=== PATIENT | female | born 2000 | race Caucasian/White ===

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

== ENCOUNTER 2019-01-19 18:21 | Emergency (ER) | payer MEDICAID ==
--- NOTE | 2019-01-19 18:40 | ERPHSYRPT ---
- History of Present Illness Time Seen by Provider: 01/19/19 18:28 Historian: patient Exam Limitations: no limitations Physician History: Pt started c/o RLQ abdominal pain 1 week ago, denies nausea, vomiting, diarrhea , urinary complaints, her last menstrual period was 2 months ago, denies vaginal bleeding or discharge. Timing/Duration: week(s) (1) Activities at Onset: none Quality: cramping Abdominal Pain Onset Location: RLQ Pain Radiation: no radiation Severity of Pain-Max: moderate Severity of Pain-Current: mild Modifying Factors: Improves With: nothing Associated Symptoms: denies symptoms Previous symptoms: no prior history Allergies/Adverse Reactions: Penicillins Allergy (Verified 01/19/19 18:37) Hx Tetanus, Diphtheria Vaccination/Date Given: Yes Hx Influenza Vaccination/Date Given: No Hx Pneumococcal Vaccination/Date Given: No - Review of Systems Constitutional: No Symptoms Ears, Nose, & Throat: No Symptoms Respiratory: No Symptoms Cardiac: No Symptoms Abdominal/Gastrointestinal: Abdominal Pain Genitourinary Symptoms: No Symptoms Musculoskeletal: No Symptoms Skin: No Symptoms Neurological: No Symptoms All Other Systems: Reviewed and Negative - Past Medical History Pertinent Past Medical History: Yes Neurological History: No Pertinent History ENT History: No Pertinent History Cardiac History: Hypertension Respiratory History: No Pertinent History Endocrine Medical History: No Pertinent History Musculoskeletal History: No Pertinent History GI Medical History: No Pertinent History History: No Pertinent History Psycho-Social History: Depression Female Reproductive Disorders: No Pertinent History Other Medical History: kidney cyst - Past Surgical History Past Surgical History: Yes Cardiac: No Pertinent History Respiratory: No Pertinent History Gastrointestinal: No Pertinent History Genitourinary: No Pertinent History Musculoskeletal: No Pertinent History Female Surgical History: No Pertinent History Other Surgical History: wisdom teeth - Social History Smoking Status: Current some day smoker How long have you smoked: 6 Exposure to second hand smoke: Yes Drug Use: none Patient Lives Alone: No Significant Family History: no pertinent family hx - Nursing Vital Signs Nursing Vital Signs: Initial Vital Signs Temperature 98.9 F 01/19/19 18:25 Pulse Rate 87 01/19/19 18:25 Respiratory Rate 18 01/19/19 18:25 Blood Pressure 138/91 01/19/19 18:25 O2 Sat by Pulse Oximetry 99 01/19/19 18:25 Pain Scale Pain Intensity 9 - Physical Exam General Appearance: no apparent distress Ears, Nose, Throat Exam: normal ENT inspection Neck Exam: normal inspection, non-tender, supple Respiratory Exam: normal breath sounds, lungs clear, No chest tenderness Cardiovascular Exam: regular rate/rhythm, normal heart sounds, normal peripheral pulses, No murmur Gastrointestinal/Abdomen Exam: soft, normal bowel sounds, tenderness (RLQ, mod. severe), No distention, No mass, No guarding, No ecchymosis, No rebound, No hernia, No organomegaly Back Exam: normal inspection, CVA tenderness (mild, right), No vertebral tenderness Extremity Exam: normal inspection, No calf tenderness Neurologic Exam: alert, oriented x 3, normal mood/affect Skin Exam: normal color, warm, dry, No rash, No petechiae, No cyanosis, No diaphoresis Lymphatic Exam: No adenopathy SpO2 Interpretation: normal O2 Delivery: Room Air - Course Nursing assessment & vital signs reviewed: Yes - CT Exams Abdomen/Pelvis CT Interpretation: Tele-radiologist Report, Other (small, right ovarian cyst) Ordered Tests: Active Orders 24 hr Category Date Time Status IV Insertion STAT Care 01/19/19 19:02 Active ABDOMEN AND PELVIS W/0 CONTRAS [CT] Stat Exams 01/19/19 19:02 Taken CBC W DIFF Stat Lab 01/19/19 19:53 Completed CMP Stat Lab 01/19/19 19:53 Completed HCG,QUALITATIVE URINE Stat Lab 01/19/19 18:38 Completed LIPASE Stat Lab 01/19/19 19:53 Completed UA W/RFX UR CULTURE Stat Lab 01/19/19 18:38 Completed Medication Summary Discontinued Medications Generic Name Dose Route Start Last Admin Trade Name Mellisa PRN Reason Stop Dose Admin Sodium Chloride 1,000 mls @ 999 mls/hr 01/19/19 19:02 01/19/19 20:25 Sodium Chloride 0.9% 1000 Ml IV 01/19/19 20:02 Infused .Q1H1M STA Infusion Sodium Chloride Confirm 01/19/19 19:09 Sodium Chloride 0.9% 1000 Ml Administered 01/19/19 19:10 Dose 1,000 mls @ ud .ROUTE .STK-MED ONE Ketorolac Tromethamine 30 mg 01/19/19 19:02 01/19/19 19:21 Toradol 30 Mg Injection IV 01/19/19 19:03 30 mg STAT ONE Administration Ketorolac Tromethamine Confirm 01/19/19 19:09 Toradol 30 Mg Injection Administered 01/19/19 19:10 Dose 30 mg .ROUTE .STK-MED ONE Lab/Rad Data: Laboratory Result Diagrams 01/19/19 19:53 01/19/19 19:53 Laboratory Results 01/19/19 01/19/19 01/19/19 Range/Units 19:53 19:53 18:38 WBC 7.8 (4.0-10.5) K/mm3 RBC 4.58 (4.1-5.4) M/mm3 Hgb 13.5 (12.0-16.0) gm/dl Hct 40.1 (35-47) % MCV 87.6 (78-100) fl MCH 29.5 (26-32) pg MCHC 33.7 (32-36) g/dl RDW 13.1 (11.5-14.0) % Plt Count 256 (150-450) K/mm3 MPV 10.0 H (6-9.5) fl Gran % 62.6 (36.0-66.0) % Eos # (Auto) 0.11 (0-0.5) Absolute Lymphs (auto) 2.28 (1.0-4.6) Absolute Monos (auto) 0.52 (0.0-1.3) Lymphocytes % 29.1 (24.0-44.0) % Monocytes % 6.6 (0.0-12.0) % Eosinophils % 1.4 (0.00-5.0) % Basophils % 0.3 (0.0-0.4) % Absolute Granulocytes 4.91 (1.4-6.9) Basophils # 0.02 (0-0.4) Sodium 141 (137-145) mmol/L Potassium 3.7 (3.5-5.1) mmol/L Chloride 110 H (98-107) mmol/L Carbon Dioxide 24 (22-30) mmol/L Anion Gap 10.2 (5-15) MEQ/L BUN 14 (7-17) mg/dL Creatinine 0.78 (0.52-1.04) mg/dL Estimated GFR > 60.0 ML/MIN Glucose 87 (74-106) mg/dL Calcium 9.2 (8.4-10.2) mg/dL Total Bilirubin 0.30 (0.2-1.3) mg/dL AST 21 (14-36) U/L ALT 16 (0-35) U/L Alkaline Phosphatase 89 (38-126) U/L Serum Total Protein 6.8 (6.3-8.2) g/dL Albumin 4.0 (3.5-5.0) g/dL Lipase 88 (23-300) U/L Urine Color (YELLOW) Urine Appearance (CLEAR) Urine pH (5-6) Ur Specific Jackson (1.005-1.025) Urine Protein (Negative) Urine Ketones (NEGATIVE) Urine Blood (0-5) Jeffrey/ul Urine Nitrite (NEGATIVE) Urine Bilirubin (NEGATIVE) Urine Urobilinogen (0-1) mg/dL Ur Leukocyte Esterase (NEGATIVE) Urine WBC (Auto) (0-5) /HPF Urine RBC (Auto) (0-2) /HPF U Epithel Cells (Auto) (FEW) /HPF Urine Bacteria (Auto) (NEGATIVE) /HPF Urine Mucus (Auto) (NEGATIVE) /HPF Urine Culture Reflexed (NO) Urine Glucose (NEGATIVE) mg/dL Urine HCG, Qual NEGATIVE (Negative) 01/19/19 Range/Units 18:38 WBC (4.0-10.5) K/mm3 RBC (4.1-5.4) M/mm3 Hgb (12.0-16.0) gm/dl Hct (35-47) % MCV (78-100) fl MCH (26-32) pg MCHC (32-36) g/dl RDW (11.5-14.0) % Plt Count (150-450) K/mm3 MPV (6-9.5) fl Gran % (36.0-66.0) % Eos # (Auto) (0-0.5) Absolute Lymphs (auto) (1.0-4.6) Absolute Monos (auto) (0.0-1.3) Lymphocytes % (24.0-44.0) % Monocytes % (0.0-12.0) % Eosinophils % (0.00-5.0) % Basophils % (0.0-0.4) % Absolute Granulocytes (1.4-6.9) Basophils # (0-0.4) Sodium (137-145) mmol/L Potassium (3.5-5.1) mmol/L Chloride (98-107) mmol/L Carbon Dioxide (22-30) mmol/L Anion Gap (5-15) MEQ/L BUN (7-17) mg/dL Creatinine (0.52-1.04) mg/dL Estimated GFR ML/MIN Glucose (74-106) mg/dL Calcium (8.4-10.2) mg/dL Total Bilirubin (0.2-1.3) mg/dL AST (14-36) U/L ALT (0-35) U/L Alkaline Phosphatase (38-126) U/L Serum Total Protein (6.3-8.2) g/dL Albumin (3.5-5.0) g/dL Lipase (23-300) U/L Urine Color YELLOW (YELLOW) Urine Appearance SLIGHTLY CLOUDY (CLEAR) Urine pH 5.0 (5-6) Ur Specific Jackson 1.032 (1.005-1.025) Urine Protein NEGATIVE (Negative) Urine Ketones NEGATIVE (NEGATIVE) Urine Blood NEGATIVE (0-5) Jeffrey/ul Urine Nitrite NEGATIVE (NEGATIVE) Urine Bilirubin NEGATIVE (NEGATIVE) Urine Urobilinogen 2 (0-1) mg/dL Ur Leukocyte Esterase NEGATIVE (NEGATIVE) Urine WBC (Auto) 3-5 (0-5) /HPF Urine RBC (Auto) NONE (0-2) /HPF U Epithel Cells (Auto) FEW (FEW) /HPF Urine Bacteria (Auto) RARE (NEGATIVE) /HPF Urine Mucus (Auto) SLIGHT (NEGATIVE) /HPF Urine Culture Reflexed NO (NO) Urine Glucose NEGATIVE (NEGATIVE) mg/dL Urine HCG, Qual (Negative) - Progress Progress: improved Progress Note: 01/19/19 21:21 Pt feels better after Toradol IV and saline, afebrile, explained our findings, she is being discharged home to rest x 1-2 days, and follow up with her physician in 2-3 days. 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 Forms: Work/School Release Form Prescriptions: Naproxen 375 mg [Naprosyn 375 mg] 375 mg PO BID #30 tablet
[2019-01-19 18:46] LABS: Appearance SLIGHTLY CLOUDY (CLEAR); Bacteria RARE /HPF (NEGATIVE); Bilirubin NEGATIVE (NEGATIVE); Blood NEGATIVE Ery/ul (0-5); Epithelial Cells FEW /HPF (FEW); Glucose NEGATIVE (NEGATIVE); Ketones NEGATIVE (NEGATIVE); Leukocyte Esterase NEGATIVE (NEGATIVE); Mucus SLIGHT /HPF (NEGATIVE); Nitrite NEGATIVE (NEGATIVE); Protein,Urine Dip NEGATIVE (Negative); Specific Gravity 1.032 (1.005-1.025); Urobilinogen 2 mg/dL (0-1)
[2019-01-19] MEDS ORDERED: TORAdol 30 mg Injection IV ONE (19:02)
[2019-01-19] MEDS ORDERED: Sodium Chloride 0.9% 1000 ML 1,000 ML IV STA (19:02)
[2019-01-19] MEDS ORDERED: TORAdol 30 mg Injection ONE (19:09)
[2019-01-19] MEDS ORDERED: Sodium Chloride 0.9% 1000 ML 1,000 ML ONE (19:09)
[2019-01-19 19:52] LABS: BASOPHIL % 0.3 % (0.0-0.4); Basophil (Absolute #) 0.02 (0-0.4); Eosinophil % 1.4 % (0.00-5.0); Eosinophil (Absolute #) 0.11 (0-0.5); Granulocyte Absolute (ANC) 4.91 (1.4-6.9); Granulocytes % 62.6 % (36.0-66.0); Hematocrit 40.1 % (35-47); Hemoglobin 13.5 gm/dl (12.0-16.0); Lymphocyte (Absolute #) 2.28 (1.0-4.6); Lymphocytes % 29.1 % (24.0-44.0); Mean Cell Volume 87.6 fl (78-100); Mean Corpuscular Hemoglobin 29.5 pg (26-32); Mean Corpuscular Hgb Concent. 33.7 g/dl (32-36); Monocyte (Absolute #) 0.52 (0.0-1.3); Monocytes % 6.6 % (0.0-12.0); Platelet Count 256 K/mm3 (150-450); Red Blood Count 4.58 M/mm3 (4.1-5.4); Red Cell Distribution Width 13.1 % (11.5-14.0); White Blood Count 7.8 K/mm3 (4.0-10.5)
[2019-01-19 20:04] VITALS: O2SAT 98
[2019-01-19 20:06] LABS: ALKALINE PHOSPHATASE 89 U/L (38-126); ANION GAP 10.2 MEQ/L (5-15); BLOOD UREA NITROGEN 14 mg/dL (7-17); CHLORIDE 110 mmol/L (98-107); Calcium 9.2 mg/dL (8.4-10.2); Carbon Dioxide 24 mmol/L (22-30); Creatinine 1 0.78 mg/dL (0.52-1.04); Glucose 87 mg/dL (74-106); LIPASE 88 U/L (23-300); Potassium 3.7 mmol/L (3.5-5.1); SGOT/AST 21 U/L (14-36); SGPT/ALT 16 U/L (0-35); SODIUM 141 mmol/L (137-145); Total Protein 6.8 g/dL (6.3-8.2)
[2019-01-19 21:21] VITALS: BP 126/87; PULSE 62
--- NOTE | 2019-01-20 10:35 | XRAY ---
Exam: CT of the abdomen and pelvis without IV contrast from 01/19/2019. CTDI: 22.01 Comparison: CT of the abdomen and pelvis with IV contrast from 05/10/2017. Indication: 18-year-old female with right lower quadrant abdominal pain that began 1 week ago, complains of persistent right lower quadrant tenderness. Last menses 2 months ago, negative hCG test. Technique: Non-IV contrast axial images were obtained through the abdomen and pelvis without IV contrast material. Reconstructed coronal and sagittal images were created and reviewed. Findings: The visualized lung bases are clear except for some minimal scattered bibasilar linear atelectasis. No posterior pleural fluid is seen. Assessment of the solid organs is limited without the use of IV contrast. However, the liver, spleen, pancreas, and adrenal glands appear grossly unremarkable. I again see a small 1.5 cm in diameter probable cyst within the upper pole of the left kidney. I believe there is some focal cortical scarring at the posterior margin of the upper pole of the left kidney representing no significant change. Correlate clinically regarding past pyelonephritis or reflux nephropathy with cortical scarring. No new areas of cortical scarring or renal mass. No renal calculi or hydronephrosis is seen. The abdominal aorta appears of normal diameter. No abnormal retroperitoneal lymphadenopathy is seen. There is no free intraperitoneal air. The anterior abdominal wall appears intact. I see no findings to suggest acute appendicitis within the right lower quadrant. There is no evidence of abnormal bowel distention or bowel obstruction. There is no free intraperitoneal fluid. The uterus is anteflexed and of unremarkable size. The pelvic adnexa are remarkable for a probable 3.2 cm x 2.0 cm cyst within the right ovary on axial image #73 of series 2. This measures +12.25 Hounsfield units. Consider further evaluation with pelvic ultrasound. The left ovary appears unremarkable. No enlarged pelvic lymph nodes are seen. Pelvic sidewalls appear unremarkable. The urinary bladder is only mildly distended. No gross abnormality is seen. The skeleton reveals a few small Schmorl's nodes within the vertebral endplates of the lower thoracic and upper lumbar spine. No acute fracture or aggressive bone lesion is seen. Impression: 1. Findings most suggestive of a small 3.2 cm x 2.0 cm cyst within the right ovary. Consider further evaluation with a pelvic ultrasound. 2. No other acute process is seen within the abdomen or pelvis. 3. I again see a suggestion of a small 1.5 cm diameter cyst within the posterior aspect of the upper pole of the left kidney as well as some focal cortical scarring at the posterior margin of the upper pole of the left kidney. This is stable.
== END 2019-01-19 21:35 | disposition home or self-care (01) ==
LOC: ED 18:21
DX: N83.201 Unspecified ovarian cyst, right side (principal); I10 Essential (primary) hypertension; F32.9 Major depressive disorder, single episode, unspecified
CPT/HCPCS: 36000; 36415; 74176; 80053; 81001; 83690; 84703; 85025; 96360; 96374; 99284; J1885

== ENCOUNTER 2019-02-16 08:11 | Emergency (ER) | payer MEDICAID ==
[2019-02-16 08:37] VITALS: O2SAT 97
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
[2019-02-16 10:57] VITALS: BP 120/79; PULSE 86
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
== END 2019-02-16 11:05 | disposition home or self-care (01) ==
LOC: ED 08:11
DX: S00.11XA Contusion of right eyelid and periocular area, initial encounter (principal); Y04.0XXA Assault by unarmed brawl or fight, initial encounter
CPT/HCPCS: 70450; 84703; 99284

== ENCOUNTER 2019-02-17 12:32 | Emergency (ER) | payer MEDICAID ==
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
[2019-02-17 14:08] VITALS: PULSE 68; O2SAT 97
[2019-02-17 14:12] VITALS: BP 143/97
== END 2019-02-17 15:10 | disposition home or self-care (01) ==
LOC: ED 12:32
DX: S06.0X9D Concussion with loss of consciousness of unspecified duration, subsequent encounter (principal); S00.83XD Contusion of other part of head, subsequent encounter; R51 Headache; W22.09XA Striking against other stationary object, initial encounter; Y93.89 Activity, other specified
CPT/HCPCS: 70450; 70486; 99283

== ENCOUNTER 2019-04-17 20:13 | Emergency (ER) | payer MEDICAID ==
--- NOTE | 2019-04-17 20:55 | ERPHSYRPT ---
- History of Present Illness Time Seen by Provider: 04/17/19 20:20 Source: patient, family Patient Subjective Stated Complaint: "I was working at [employer] when i started having palpatations in my chest, i was hyperventilating and having an anxiety attack around 5:30pm tonight. My chest still hurts and my top lip is numb" Triage Nursing Assessment: Pt presents to ER with complaints of anxiety. Pt is alert and oriented x 3. Ambulated to room and placed in gown. Pt states she was at work and felt palpatations in chest, states is anxious and having chest pains. States her top lip is numb. Admits to hyperventilating at work, currently resp are easy and unlabored. Lung sounds clear throughout. Denies n/v/ d. Pt appears calm and collected at this time. Physician History: 18 y/o white female presents with sudden onset of mild cp, palpitations, and hyperventilation 2.5 hours ago while at work. pt states she had some perioral numbness which has resolved. pt started new meds trazadone and prozac a month ago. pt has some h/o depression Timing/Duration: hour(s) (2.5) Severity: mild Associated Symptoms: chest pain, other (palpitations) Allergies/Adverse Reactions: Penicillins Allergy (Verified 04/17/19 20:42) Home Medications: Fluoxetine HCl [Prozac] 50 mg PO HS 04/17/19 [History] Trazodone HCl 100 mg PO HS 04/17/19 [History] Hx Tetanus, Diphtheria Vaccination/Date Given: No Hx Influenza Vaccination/Date Given: No Hx Pneumococcal Vaccination/Date Given: No Immunizations Up to Date: Yes - Review of Systems Constitutional: No Symptoms Eyes: No Symptoms Ears, Nose, & Throat: No Symptoms Respiratory: No Symptoms Cardiac: Chest Pain (mild generalized), Palpitations Abdominal/Gastrointestinal: No Symptoms Genitourinary Symptoms: No Symptoms Musculoskeletal: No Symptoms Skin: No Symptoms Neurological: No Symptoms Psychological: No Symptoms Endocrine: No Symptoms Hematologic/Lymphatic: No Symptoms Immunological/Allergic: No Symptoms All Other Systems: Reviewed and Negative - Past Medical History Pertinent Past Medical History: Yes Neurological History: No Pertinent History ENT History: No Pertinent History Cardiac History: Hypertension Respiratory History: No Pertinent History Endocrine Medical History: No Pertinent History Musculoskeletal History: No Pertinent History GI Medical History: No Pertinent History History: No Pertinent History Psycho-Social History: Anxiety, Depression Female Reproductive Disorders: No Pertinent History Other Medical History: kidney cyst - Past Surgical History Past Surgical History: Yes Cardiac: No Pertinent History Respiratory: No Pertinent History Gastrointestinal: No Pertinent History Genitourinary: No Pertinent History Musculoskeletal: No Pertinent History Female Surgical History: No Pertinent History Other Surgical History: wisdom teeth - Social History Smoking Status: Current every day smoker How long have you smoked: 6 Exposure to second hand smoke: Yes Drug Use: none Patient Lives Alone: Yes Significant Family History: no pertinent family hx - Female History Hx Last Menstrual Period: 04/10/2019 Hx Now: No - Nursing Vital Signs Nursing Vital Signs: Initial Vital Signs Temperature 98.8 F 04/17/19 20:18 Pulse Rate 65 04/17/19 20:18 Respiratory Rate 16 04/17/19 20:18 Blood Pressure 126/79 04/17/19 20:18 O2 Sat by Pulse Oximetry 96 04/17/19 20:18 Pain Scale Pain Intensity 7 - Physical Exam General Appearance: no apparent distress, alert, anxiety Eye Exam: PERRL/EOMI, eyes nml inspection Ears, Nose, Throat Exam: normal ENT inspection, moist mucous membranes Neck Exam: normal inspection, non-tender, supple, full range of motion Respiratory Exam: normal breath sounds, chest tenderness, lungs clear, airway intact, No respiratory distress Cardiovascular Exam: regular rate/rhythm, normal heart sounds, normal peripheral pulses Gastrointestinal/Abdomen Exam: soft, normal bowel sounds, No tenderness Pelvic Exam: not done Rectal Exam: not done Back Exam: normal inspection, normal range of motion, No CVA tenderness, No vertebral tenderness Extremity Exam: normal inspection, normal range of motion, pelvis stable Neurologic Exam: alert, oriented x 3, cooperative, formation testing operator II-XII nml as tested Skin Exam: normal color, warm, dry Lymphatic Exam: No adenopathy SpO2 Interpretation: normal SpO2: 96 O2 Delivery: Room Air - Course Nursing assessment & vital signs reviewed: Yes EKG Interpreted by Me: RATE (64), Sinus Rhythm, NORMAL AXIS, NORMAL INTERVALS, NORMAL QRS, Other (no comparison ekg) Ordered Tests: Active Orders 24 hr Category Date Time Status Linseed Oil Order Filler STAT Care 04/17/19 20:35 Active Clean Catch Urine Specimen STAT Care 04/17/19 20:36 Active EKG-ER Only STAT Care 04/17/19 20:34 Active BMP Stat Lab 04/17/19 21:16 Completed CBC W DIFF Stat Lab 04/17/19 21:16 Completed HCG,QUALITATIVE URINE Stat Lab 04/17/19 21:43 Completed TROPONIN Q3H Lab 04/17/19 21:16 Completed TROPONIN Q3H Lab 04/17/19 23:45 Ordered UA W/RFX UR CULTURE Stat Lab 04/17/19 21:43 Completed Urine Triage Profile Stat Lab 04/17/19 21:43 Completed Lab/Rad Data: Laboratory Result Diagrams 04/17/19 21:16 04/17/19 21:16 Laboratory Results 04/17/19 04/17/19 04/17/19 Range/Units 21:43 21:43 21:43 WBC (4.0-10.5) K/mm3 RBC (4.1-5.4) M/mm3 Hgb (12.0-16.0) gm/dl Hct (35-47) % MCV (78-100) fl MCH (26-32) pg MCHC (32-36) g/dl RDW (11.5-14.0) % Plt Count (150-450) K/mm3 MPV (6-9.5) fl Gran % (36.0-66.0) % Eos # (Auto) (0-0.5) Absolute Lymphs (auto) (1.0-4.6) Absolute Monos (auto) (0.0-1.3) Lymphocytes % (24.0-44.0) % Monocytes % (0.0-12.0) % Eosinophils % (0.00-5.0) % Basophils % (0.0-0.4) % Absolute Granulocytes (1.4-6.9) Basophils # (0-0.4) Sodium (137-145) mmol/L Potassium (3.5-5.1) mmol/L Chloride (98-107) mmol/L Carbon Dioxide (22-30) mmol/L Anion Gap (5-15) MEQ/L BUN (7-17) mg/dL Creatinine (0.52-1.04) mg/dL Estimated GFR ML/MIN Glucose (74-106) mg/dL Calcium (8.4-10.2) mg/dL Troponin I (0.000-0.034) ng/mL Urine Color YELLOW (YELLOW) Urine Appearance CLOUDY (CLEAR) Urine pH 5.0 (5-6) Ur Specific [place] 1.033 (1.005-1.025) Urine Protein NEGATIVE (Negative) Urine Ketones NEGATIVE (NEGATIVE) Urine Blood NEGATIVE (0-5) Jeffrey/ul Urine Nitrite NEGATIVE (NEGATIVE) Urine Bilirubin NEGATIVE (NEGATIVE) Urine Urobilinogen NEGATIVE (0-1) mg/dL Ur Leukocyte Esterase NEGATIVE (NEGATIVE) Urine WBC (Auto) NONE (0-5) /HPF Urine RBC (Auto) 0-2 (0-2) /HPF U Epithel Cells (Auto) FEW (FEW) /HPF Urine Bacteria (Auto) NONE (NEGATIVE) /HPF Urine Mucus (Auto) SLIGHT (NEGATIVE) /HPF Urine Culture Reflexed NO (NO) Urine Glucose NEGATIVE (NEGATIVE) mg/dL Urine HCG, Qual NEGATIVE (Negative) Urine Opiates Level NEGATIVE (NEGATIVE) Ur Methadone NEGATIVE (NEGATIVE) Urine Barbiturates NEGATIVE (NEGATIVE) Ur Phencyclidine (PCP) NEGATIVE (NEGATIVE) Urine Amphetamine NEGATIVE (NEGATIVE) U Benzodiazepine Level POSITIVE (NEGATIVE) Urine Cocaine NEGATIVE (NEGATIVE) Urine Marijuana (THC) POSITIVE (NEGATIVE) 04/17/19 04/17/19 04/17/19 Range/Units 21:16 21:16 21:16 WBC 6.9 (4.0-10.5) K/mm3 RBC 4.52 (4.1-5.4) M/mm3 Hgb 13.4 (12.0-16.0) gm/dl Hct 39.9 (35-47) % MCV 88.3 (78-100) fl MCH 29.6 (26-32) pg MCHC 33.6 (32-36) g/dl RDW 13.3 (11.5-14.0) % Plt Count 255 (150-450) K/mm3 MPV 11.0 H (6-9.5) fl Gran % 62.2 (36.0-66.0) % Eos # (Auto) 0.12 (0-0.5) Absolute Lymphs (auto) 2.08 (1.0-4.6) Absolute Monos (auto) 0.39 (0.0-1.3) Lymphocytes % 30.3 (24.0-44.0) % Monocytes % 5.7 (0.0-12.0) % Eosinophils % 1.7 (0.00-5.0) % Basophils % 0.1 (0.0-0.4) % Absolute Granulocytes 4.26 (1.4-6.9) Basophils # 0.01 (0-0.4) Sodium 142 (137-145) mmol/L Potassium 4.3 (3.5-5.1) mmol/L Chloride 106 (98-107) mmol/L Carbon Dioxide 27 (22-30) mmol/L Anion Gap 13.1 (5-15) MEQ/L BUN 14 (7-17) mg/dL Creatinine 0.77 (0.52-1.04) mg/dL Estimated GFR > 60.0 ML/MIN Glucose 103 (74-106) mg/dL Calcium 9.6 (8.4-10.2) mg/dL Troponin I < 0.012 (0.000-0.034) ng/mL Urine Color (YELLOW) Urine Appearance (CLEAR) Urine pH (5-6) Ur Specific [place] (1.005-1.025) Urine Protein (Negative) Urine Ketones (NEGATIVE) Urine Blood (0-5) Jeffrey/ul Urine Nitrite (NEGATIVE) Urine Bilirubin (NEGATIVE) Urine Urobilinogen (0-1) mg/dL Ur Leukocyte Esterase (NEGATIVE) Urine WBC (Auto) (0-5) /HPF Urine RBC (Auto) (0-2) /HPF U Epithel Cells (Auto) (FEW) /HPF Urine Bacteria (Auto) (NEGATIVE) /HPF Urine Mucus (Auto) (NEGATIVE) /HPF Urine Culture Reflexed (NO) Urine Glucose (NEGATIVE) mg/dL Urine HCG, Qual (Negative) Urine Opiates Level (NEGATIVE) Ur Methadone (NEGATIVE) Urine Barbiturates (NEGATIVE) Ur Phencyclidine (PCP) (NEGATIVE) Urine Amphetamine (NEGATIVE) U Benzodiazepine Level (NEGATIVE) Urine Cocaine (NEGATIVE) Urine Marijuana (THC) (NEGATIVE) - Progress Progress: improved, re-examined Counseled pt/family regarding: lab results, diagnosis, need for follow-up - Departure Departure Disposition: Home Clinical Impression: Chest pain, Palpitations, Anxiety Condition: Stable Critical Care Time: No Referrals: DARYN MARTINEZ [Primary Care Provider] - Additional Instructions: follow up with your prescribing doctor for further management of your anxiety
[2019-04-17 21:38] LABS: Absolute Neutrophil Ct (ANC) 4.26 (1.4-6.9); BASOPHIL % 0.1 % (0.0-0.4); Basophil (Absolute #) 0.01 (0-0.4); Eosinophil % 1.7 % (0.00-5.0); Eosinophil (Absolute #) 0.12 (0-0.5); Hematocrit 39.9 % (35-47); Hemoglobin 13.4 gm/dl (12.0-16.0); Lymphocyte (Absolute #) 2.08 (1.0-4.6); Lymphocytes % 30.3 % (24.0-44.0); Mean Cell Volume 88.3 fl (78-100); Mean Corpuscular Hemoglobin 29.6 pg (26-32); Mean Corpuscular Hgb Concent. 33.6 g/dl (32-36); Monocyte (Absolute #) 0.39 (0.0-1.3); Monocytes % 5.7 % (0.0-12.0); Neutrophil % 62.2 % (36.0-66.0); Platelet Count 255 K/mm3 (150-450); Red Blood Count 4.52 M/mm3 (4.1-5.4); Red Cell Distribution Width 13.3 % (11.5-14.0); White Blood Count 6.9 K/mm3 (4.0-10.5)
[2019-04-17 21:45] LABS: Appearance CLOUDY (CLEAR); Bilirubin NEGATIVE (NEGATIVE); Blood NEGATIVE Ery/ul (0-5); Epithelial Cells FEW /HPF (FEW); Glucose NEGATIVE (NEGATIVE); Ketones NEGATIVE (NEGATIVE); Leukocyte Esterase NEGATIVE (NEGATIVE); Mucus SLIGHT /HPF (NEGATIVE); Nitrite NEGATIVE (NEGATIVE); Protein,Urine Dip NEGATIVE (Negative); RBC 0-2 /HPF (0-2); Specific Gravity 1.033 (1.005-1.025); Urobilinogen NEGATIVE mg/dL (0-1)
[2019-04-17 21:48] LABS: ANION GAP 13.1 MEQ/L (5-15); BLOOD UREA NITROGEN 14 mg/dL (7-17); CHLORIDE 106 mmol/L (98-107); Calcium 9.6 mg/dL (8.4-10.2); Carbon Dioxide 27 mmol/L (22-30); Creatinine 1 0.77 mg/dL (0.52-1.04); Glucose 103 mg/dL (74-106); Potassium 4.3 mmol/L (3.5-5.1); SODIUM 142 mmol/L (137-145)
[2019-04-17 22:02] LABS: Amphetamine,Urine NEGATIVE (NEGATIVE); Barbiturate,Urine NEGATIVE (NEGATIVE); Benzodiazepine,Urine POSITIVE (NEGATIVE); Cocaine,Urine NEGATIVE (NEGATIVE); Methadone,Urine NEGATIVE (NEGATIVE); Opiate,Urine NEGATIVE (NEGATIVE); PCP,Urine NEGATIVE (NEGATIVE); THC,Urine POSITIVE (NEGATIVE)
[2019-04-17] MEDS ORDERED: Ativan 2 MG/1 ML VIAL IM ONE (22:30)
[2019-04-17] MEDS ORDERED: Ativan 2 MG/1 ML VIAL ONE (22:43)
[2019-04-17 23:13] VITALS: BP 113/66; PULSE 70; O2SAT 100
== END 2019-04-17 23:11 | disposition home or self-care (01) ==
LOC: ED 20:13
DX: R07.9 Chest pain, unspecified (principal); R00.2 Palpitations; F41.9 Anxiety disorder, unspecified
CPT/HCPCS: 36415; 80048; 80307; 81001; 84484; 84703; 85025; 93005; 93041; 96372; 99284; J2060

== ENCOUNTER 2019-06-27 14:59 | Emergency (ER) | payer MEDICAID ==
[2019-06-27 17:07] LABS: Absolute Neutrophil Ct (ANC) 5.69 (1.4-6.9); BASOPHIL % 0.1 % (0.0-0.4); Basophil (Absolute #) 0.01 (0-0.4); Eosinophil % 1.4 % (0.00-5.0); Eosinophil (Absolute #) 0.11 (0-0.5); Hematocrit 41.1 % (35-47); Hemoglobin 13.7 gm/dl (12.0-16.0); Lymphocyte (Absolute #) 1.59 (1.0-4.6); Lymphocytes % 20.6 % (24.0-44.0); Mean Corpuscular Hemoglobin 29.7 pg (26-32); Mean Corpuscular Hgb Concent. 33.3 g/dl (32-36); Mean Platelet Volume 10.5 fl (6-9.5); Monocyte (Absolute #) 0.31 (0.0-1.3); Neutrophil % 73.9 % (36.0-66.0); Platelet Count 256 K/mm3 (150-450); Red Blood Count 4.62 M/mm3 (4.1-5.4); Red Cell Distribution Width 13.2 % (11.5-14.0); White Blood Count 7.7 K/mm3 (4.0-10.5)
[2019-06-27 17:22] LABS: ALBUMIN 4.4 g/dL (3.5-5.0); ALKALINE PHOSPHATASE 76 U/L (38-126); ANION GAP 10.4 MEQ/L (5-15); BLOOD UREA NITROGEN 8 mg/dL (7-17); CHLORIDE 110 mmol/L (98-107); Calcium 9.9 mg/dL (8.4-10.2); Carbon Dioxide 27 mmol/L (22-30); Creatinine 1 0.72 mg/dL (0.52-1.04); Glucose 97 mg/dL (74-106); Potassium 4.1 mmol/L (3.5-5.1); SALICYLATE 1.2 mg/dL (2-20); SGOT/AST 22 U/L (14-36); SGPT/ALT 13 U/L (0-35); SODIUM 143 mmol/L (137-145); Total Protein 7.7 g/dL (6.3-8.2)
[2019-06-27 17:30] LABS: ACETAMINOPHEN < 10 ug/ml (10-30); ETHYL ALCOHOL < 10 mg/dL (0-10)
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
[2019-06-27 17:59] VITALS: BP 112/78; PULSE 74; O2SAT 100
== END 2019-06-27 17:57 | disposition home or self-care (01) ==
LOC: ED 14:59
DX: F32.9 Major depressive disorder, single episode, unspecified (principal); Z79.899 Other long term (current) drug therapy; R44.3 Hallucinations, unspecified; F51.5 Nightmare disorder
CPT/HCPCS: 36415; 80053; 80307; 85025; 99284; G0481; G0480

== ENCOUNTER 2019-12-05 19:07 | Emergency (ER) | payer OTHER ==
--- NOTE | 2019-12-05 19:40 | ERPHSYRPT ---
- History of Present Illness Time Seen by Provider: 12/05/19 19:19 Source: patient Exam Limitations: no limitations Patient Subjective Stated Complaint: pt states that she has a red area that appeared on abdomen a week ago, pt states that the pain and reddness has increased, pt states that she had a fever this afternoon of 101, pt states that she took tylenol at 1800 Triage Nursing Assessment: pt ambulated into the er, pt is axo x4, pt c/o pain to lower midline abdomen, pt states 6/10 pain, reddened area measures 9.5 cm x 6 cm, area is warm to the touch, area is hard to the touch, hypertensive Physician History: 18 years old female presented in the ER with a chief complaint of redness and swelling in the lower mid abdominal wall which started almost a week ago after she shaved off her hairs. It started as a small cyst area of redness and is gradually increasing in size associated with mild to moderate intensity pain especially with palpation. No discharge yet. Denies fever or chills. Timing/Duration: week(s) (1), gradual onset, worse Quality: burning, painful Severity: moderate Location: other Possible Causes: no cause identified Associated Symptoms: rash Allergies/Adverse Reactions: Penicillins Allergy (Verified 04/17/19 20:42) Home Medications: Quetiapine Fumarate 200 mg PO HS 12/05/19 [History] Hx Tetanus, Diphtheria Vaccination/Date Given: Yes Hx Influenza Vaccination/Date Given: No Hx Pneumococcal Vaccination/Date Given: No Immunizations Up to Date: Yes Travel Risk - International Travel Have you traveled outside of the country in past 3 weeks: No Have you or anyone close to you been diagnosed with or: No Do your reside in a community with a known COVID-19 case?: Yes If Yes where:: [facility] [facility] - Coronavirus Screening Has patient experienced Coronavirus symptoms: No - Review of Systems Constitutional: No Symptoms Ears, Nose, & Throat: No Symptoms Respiratory: No Symptoms Cardiac: No Symptoms Genitourinary Symptoms: No Symptoms Musculoskeletal: No Symptoms Skin: Rash Neurological: No Symptoms Psychological: No Symptoms Endocrine: No Symptoms Hematologic/Lymphatic: No Symptoms Immunological/Allergic: No Symptoms - Past Medical History Pertinent Past Medical History: Yes Neurological History: No Pertinent History ENT History: No Pertinent History Cardiac History: Hypertension Respiratory History: No Pertinent History Endocrine Medical History: No Pertinent History Musculoskeletal History: No Pertinent History GI Medical History: No Pertinent History History: No Pertinent History Psycho-Social History: Anxiety, Depression Female Reproductive Disorders: No Pertinent History Other Medical History: kidney cyst, cyst on ovary - Past Surgical History Past Surgical History: Yes Cardiac: No Pertinent History Respiratory: No Pertinent History Gastrointestinal: No Pertinent History Genitourinary: No Pertinent History Musculoskeletal: No Pertinent History Female Surgical History: No Pertinent History Other Surgical History: wisdom teeth - Social History Smoking Status: Current every day smoker How long have you smoked: 6 years Exposure to second hand smoke: Yes Drug Use: none Patient Lives Alone: Yes Significant Family History: no pertinent family hx - Female History Hx Now: No - Nursing Vital Signs Nursing Vital Signs: Initial Vital Signs Temperature 98.4 F 12/05/19 19:15 Pulse Rate 111 H 12/05/19 19:15 Respiratory Rate 16 12/05/19 19:15 Blood Pressure 155/102 12/05/19 19:15 O2 Sat by Pulse Oximetry 97 12/05/19 19:15 Pain Scale Pain Intensity 6 - Physical Exam General Appearance: no apparent distress Eye Exam: eyes nml inspection Ears, Nose, Throat Exam: normal ENT inspection Neck Exam: normal inspection, full range of motion Respiratory Exam: normal breath sounds, lungs clear Cardiovascular Exam: normal heart sounds, tachycardia Gastrointestinal/Abdomen Exam: soft, normal bowel sounds, tenderness (Lower abdomen just above the navel line is small blackhead with erythema around. Measuring about 9 x 6 cm erythema with this center area of firmness but no fluctuation. No discharge.) Back Exam: normal inspection Extremity Exam: normal inspection, normal range of motion Neurologic Exam: alert, oriented x 3, cooperative Skin Exam: normal color SpO2 Interpretation: normal SpO2: 97 O2 Delivery: Room Air - Course Nursing assessment & vital signs reviewed: Yes Ordered Tests: Active Orders 24 hr Category Date Time Status Isolation, Initiate & Maintain Q4H Care 12/05/19 19:31 Active HCG,QUALITATIVE URINE Stat Lab 12/05/19 Uncollected - Progress Progress: unchanged Progress Note: 12/05/19 19:44 I believe patient is developing some cellulitis from initial folliculitis. I would start her on Bactrim. Recommended taking ibuprofen as needed for pain and warm compresses. Discussed signs symptoms of worsening needing return to ER which she seems understanding. Stable for discharge. Counseled pt/family regarding: lab results, diagnosis, need for follow-up - Departure Departure Disposition: Home Clinical Impression: Abdominal wall cellulitis, Folliculitis Condition: Stable Critical Care Time: No Referrals: DARYN MARTINEZ [Primary Care Provider] - Follow Up with PCP/3 days Instructions: Skin Abscess Additional Instructions: Take Tylenol/ibuprofen as needed for pain. Apply warm compresses. Continue with antibiotics. Follow-up with primary care for reevaluation. Return to ER for increased swelling redness/fever chills etc. Prescriptions: Smz/Tmp Ds Tablet [Bactrim Ds Tablet] 1 udtab PO BID #14 tablet
[2019-12-05] MEDS ORDERED: BACTRIM DS TABLET PO STA (19:46)
[2019-12-05] MEDS ORDERED: BACTRIM DS TABLET PO ONE (20:03)
[2019-12-05 20:14] VITALS: BP 129/85; PULSE 98; O2SAT 98
== END 2019-12-05 20:14 | disposition home or self-care (01) ==
LOC: ED 19:07
DX: L03.311 Cellulitis of abdominal wall (principal); L73.9 Follicular disorder, unspecified
CPT/HCPCS: 84703; 99283; A9270-GY

== ENCOUNTER 2020-05-02 10:06 | Emergency (ER) | payer OTHER ==
--- NOTE | 2020-05-02 10:31 | ERPHSYRPT ---
- History of Present Illness Time Seen by Provider: 05/02/20 10:20 Source: patient Exam Limitations: no limitations Patient Subjective Stated Complaint: asthma attack and anxiety Triage Nursing Assessment: pt to ED c/o asthma attack and anxiety onset this am. states she was working and suddenly got hot and felt like she couldnt breathe. since then her fingers have felt tingly but states "thats just my anxiety now." rates 5/10 sharp razor pain in center of chest that increases with deep breaths. lungs sound clear bilaterally and heart sounds normal. pt does not appear to be in resp distress on arrival. Physician History: This is a 19-year-old white female who has a history of asthma and anxiety. She was fine until she was at work today when it became very warm and then she started having some wheezing difficulty breathing. Because she felt as though she was not breathing well she became anxious and had tingling in her fingers and her face. That has since resolved. She still feels a little area of warmth in her throat and just wanted to be evaluated. This type of syndrome of symptoms has occurred in the past on occasion when she has an asthma attack. Patient is out of her albuterol inhaler. No exposure to chemicals, gas or smoke Timing/Duration: today, improved Activities at Onset: none Severity of Dyspnea-Max: mild Severity of Dyspnea-Current: mild Possible Cause: occasional episodes Modifying Factors: Improves With: coughing Associated Symptoms: cough, wheezing (Resolved prior to arrival), No chest pain/discomfort, No heaviness Allergies/Adverse Reactions: Penicillins Allergy (Verified 05/02/20 10:18) Home Medications: Quetiapine Fumarate 200 mg PO HS 12/05/19 [History] Hx Tetanus, Diphtheria Vaccination/Date Given: Yes Hx Influenza Vaccination/Date Given: Yes Hx Pneumococcal Vaccination/Date Given: No Travel Risk - International Travel Have you traveled outside of the country in past 3 weeks: No - Coronavirus Screening Are you exhibiting any of the following symptoms?: No Close contact with a COVID-19 positive Pt in past 14-21 Days: No - Review of Systems Constitutional: No Symptoms Eyes: No Symptoms Ears, Nose, & Throat: No Symptoms Respiratory: Cough, Dyspnea (Mild and improved), Wheezing Abdominal/Gastrointestinal: No Symptoms Genitourinary Symptoms: No Symptoms Musculoskeletal: No Symptoms Skin: No Symptoms Neurological: No Symptoms Psychological: No Symptoms Endocrine: No Symptoms Hematologic/Lymphatic: No Symptoms Immunological/Allergic: No Symptoms All Other Systems: Reviewed and Negative - Past Medical History Pertinent Past Medical History: Yes Neurological History: No Pertinent History ENT History: No Pertinent History Cardiac History: Hypertension Respiratory History: No Pertinent History Endocrine Medical History: No Pertinent History Musculoskeletal History: No Pertinent History GI Medical History: No Pertinent History History: No Pertinent History Psycho-Social History: Anxiety, Depression Female Reproductive Disorders: No Pertinent History Other Medical History: kidney cyst, cyst on ovary - Past Surgical History Past Surgical History: Yes Cardiac: No Pertinent History Respiratory: No Pertinent History Gastrointestinal: No Pertinent History Genitourinary: No Pertinent History Musculoskeletal: No Pertinent History Female Surgical History: No Pertinent History Other Surgical History: wisdom teeth - Social History Smoking Status: Current every day smoker How long have you smoked: 6 years Exposure to second hand smoke: No Drug Use: none Patient Lives Alone: Yes Significant Family History: no pertinent family hx - Female History Hx Now: No - Nursing Vital Signs Nursing Vital Signs: Initial Vital Signs Temperature 96.9 F 05/02/20 10:09 Pulse Rate 92 H 05/02/20 10:09 Respiratory Rate 22 05/02/20 10:09 Blood Pressure 131/92 05/02/20 10:09 O2 Sat by Pulse Oximetry 99 05/02/20 10:09 Pain Scale Pain Intensity 5 - Physical Exam General Appearance: no apparent distress, alert, anxiety Eye Exam: PERRL/EOMI, eyes nml inspection Ears, Nose, Throat Exam: hearing grossly normal, normal pharynx Neck Exam: normal inspection, non-tender, supple, full range of motion Respiratory Exam: normal breath sounds, lungs clear, airway intact, No chest tenderness, No respiratory distress Cardiovascular/Chest Exam: normal heart sounds, regular rate/rhythm, normal peripheral pulses Abdominal/Gastrointestinal Exam: soft, normal bowel sounds, No tenderness Rectal Exam: not done Extremity Exam: non-tender, normal range of motion, normal inspection Neurologic Exam: alert, oriented x 3, cooperative, 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 as tested, nml cerebellar function, nml station & gait, sensation nml Skin Exam: normal color, warm, dry Lymphatic Exam: No adenopathy SpO2 Interpretation: normal SpO2: 99 O2 Delivery: Room Air - Course Nursing assessment & vital signs reviewed: Yes Ordered Tests: Active Orders 24 hr Category Date Time Status CHEST 1 VIEW (PORTABLE) Stat Exams 05/02/20 10:50 Taken Medication Summary Discontinued Medications Generic Name Dose Route Start Last Admin Trade Name Mellisa PRN Reason Stop Dose Admin Methylprednisolone Sodium Succinate 125 mg 05/02/20 10:32 05/02/20 10:37 Solu-Medrol 125 Mg IV 05/02/20 10:33 125 mg STAT ONE Administration Methylprednisolone Sodium Succinate Confirm 05/02/20 10:34 Solu-Medrol 125 Mg Administered 05/02/20 10:35 Dose 125 mg .ROUTE .STK-MED ONE - Progress Progress: improved Air Movement: good Progress Note: 05/02/20 11:05 Chest x-ray shows no acute cardiopulmonary process. Blood Culture(s) Obtained: No Antibiotics given: No Counseled pt/family regarding: diagnosis, need for follow-up, rad results - Departure Departure Disposition: Home Clinical Impression: Asthma attack Condition: Stable Critical Care Time: No Additional Instructions: Stop smoking cigarettes. Avoid exposure to smoke. Use your inhaler as prescribed. Follow-up with your primary care physician for further management. Prescriptions: Prednisone 10 mg [Deltasone 10 mg] 10 mg PO TID #12 tablet Albuterol 8 gm Mdi Hfa [Ventolin Hfa MDI] 8 gm IH Q4H #1 hfa.aer.ad
[2020-05-02] MEDS ORDERED: solu-MEDROL 125 MG ONE (10:34)
[2020-05-02] MEDS: solu-MEDROL 125 MG IV ONE (10:37)
[2020-05-02 11:11] VITALS: BP 177/95; PULSE 78; O2SAT 96
--- NOTE | 2020-05-02 18:02 | XRAY ---
Indication: Short of breath. Wheezing. Comparison: May 30, 2018. Portable chest again demonstrates normal heart, lungs, and bony thorax.
== END 2020-05-02 11:15 | disposition home or self-care (01) ==
LOC: ED 10:06
DX: J45.901 Unspecified asthma with (acute) exacerbation (principal)
CPT/HCPCS: 36000; 71045; 96374; 99284; J2930

== ENCOUNTER 2020-09-05 09:07 | Emergency (ER) | payer MEDICAID, OTHER ==
[2020-09-05 09:28] VITALS: O2SAT 99
[2020-09-05] MEDS ORDERED: TORAdol 30 mg Injection IM ONE (09:42)
[2020-09-05] MEDS ORDERED: TORAdol 30 mg Injection ONE (09:44)
[2020-09-05 09:45] LABS: Appearance CLOUDY (CLEAR); Bacteria RARE /HPF (NEGATIVE); Bilirubin NEGATIVE (NEGATIVE); Blood LARGE Ery/ul (0-5); Epithelial Cells MANY /HPF (FEW); Glucose NEGATIVE (NEGATIVE); Ketones NEGATIVE (NEGATIVE); Leukocyte Esterase SMALL (NEGATIVE); Mucus SLIGHT /HPF (NEGATIVE); Nitrite NEGATIVE (NEGATIVE); Protein,Urine Dip 30 (Negative); RBC 26-50 /HPF (0-2); Specific Gravity 1.017 (1.005-1.025); Urobilinogen NEGATIVE mg/dL (0-1)
--- NOTE | 2020-09-05 09:51 | ERPHSYRPT ---
- History of Present Illness Time Seen by Provider: 09/05/20 09:27 Source: patient Exam Limitations: no limitations Patient Subjective Stated Complaint: Pt states "I started my period yesterday and I could not sleep all night due to cramps. It hurts really bad." Triage Nursing Assessment: Pt presented alert and oriented X 3, ski wpd pt ambulates with an upright steady gait, able to speak in clear full sentenecs pt in no apparent respirary distress. Physician History: 19 years old female presented in the ER with chief complaint of pelvic cramping with her menstrual cycle since yesterday. Patient reports she usually have cramping with cycle but this time her cycle is a little heavier than usual and more cramping. She has taken Tylenol and ibuprofen x1 and was unable to sleep well last night and decided to come in the ER. Currently her pain is better. She denies any right lower quadrant or left lower quadrant pain. No nausea or vomiting. Timing/Duration: yesterday, gradual onset, improved Activites at Onset: rest Onset Location: pelvic pain Pain Radiation: none Severity of Pain-Max: severe Severity of Pain-Current: moderate Prior abdominal problems: none Sexual intercourse history: non-contributory Modifying Factors: Improves With: nothing Associated Symptoms: No fever, No nausea, No vomiting, No dysuria, No loss of bladder control, No lower back pain, No swelling, No syncope, No vaginal discharge Allergies/Adverse Reactions: Penicillins Allergy (Verified 05/02/20 10:18) Home Medications: Quetiapine Fumarate 200 mg PO HS 12/05/19 [History] Hx Tetanus, Diphtheria Vaccination/Date Given: Yes Hx Influenza Vaccination/Date Given: Yes Hx Pneumococcal Vaccination/Date Given: No Travel Risk - International Travel Have you traveled outside of the country in past 3 weeks: No - Coronavirus Screening Are you exhibiting any of the following symptoms?: No Close contact with a COVID-19 positive Pt in past 14-21 Days: No - Past Medical History Pertinent Past Medical History: Yes Neurological History: No Pertinent History ENT History: No Pertinent History Cardiac History: Hypertension Respiratory History: No Pertinent History Endocrine Medical History: No Pertinent History Musculoskeletal History: No Pertinent History GI Medical History: No Pertinent History History: No Pertinent History Psycho-Social History: Anxiety, Depression Female Reproductive Disorders: No Pertinent History Other Medical History: kidney cyst, cyst on ovary - Past Surgical History Past Surgical History: Yes Cardiac: No Pertinent History Respiratory: No Pertinent History Gastrointestinal: No Pertinent History Genitourinary: No Pertinent History Musculoskeletal: No Pertinent History Female Surgical History: No Pertinent History Other Surgical History: wisdom teeth - Social History Smoking Status: Current every day smoker How long have you smoked: years Exposure to second hand smoke: Yes Drug Use: none Patient Lives Alone: Yes Significant Family History: no pertinent family hx - Female History Hx Last Menstrual Period: 09/04/2020 Hx Now: No - Nursing Vital Signs Nursing Vital Signs: Initial Vital Signs Temperature 97.8 F 09/05/20 09:22 Pulse Rate 110 H 09/05/20 09:22 Respiratory Rate 20 09/05/20 09:22 Blood Pressure 129/95 09/05/20 09:22 O2 Sat by Pulse Oximetry 99 09/05/20 09:22 Pain Scale Pain Intensity 6 - Physical Exam SpO2: 99 Ordered Tests: Active Orders 24 hr Category Date Time Status CULTURE,URINE Stat Lab 09/05/20 09:37 Received HCG,QUALITATIVE URINE Stat Lab 09/05/20 09:42 Completed UA W/RFX UR CULTURE Stat Lab 09/05/20 09:37 Completed Medication Summary Discontinued Medications Generic Name Dose Route Start Last Admin Trade Name Freq PRN Reason Stop Dose Admin Ketorolac Tromethamine 30 mg 09/05/20 09:42 09/05/20 09:45 Toradol 30 Mg Injection IM 09/05/20 09:43 30 mg STAT ONE Administration Ketorolac Tromethamine Confirm 09/05/20 09:44 Toradol 30 Mg Injection Administered 09/05/20 09:45 Dose 30 mg .ROUTE .STK-MED ONE Lab/Rad Data: Laboratory Results 09/05/20 09/05/20 Range/Units 09:42 09:37 Urine Color YELLOW (YELLOW) Urine Appearance CLOUDY (CLEAR) Urine pH 7.0 (5-6) Ur Specific [place] 1.017 (1.005-1.025) Urine Protein 30 (Negative) Urine Ketones NEGATIVE (NEGATIVE) Urine Blood LARGE (0-5) Jeffrey/ul Urine Nitrite NEGATIVE (NEGATIVE) Urine Bilirubin NEGATIVE (NEGATIVE) Urine Urobilinogen NEGATIVE (0-1) mg/dL Ur Leukocyte Esterase SMALL (NEGATIVE) Urine WBC (Auto) 6-10 (0-5) /HPF Urine RBC (Auto) 26-50 (0-2) /HPF U Epithel Cells (Auto) MANY (FEW) /HPF Urine Bacteria (Auto) RARE (NEGATIVE) /HPF Urine Mucus (Auto) SLIGHT (NEGATIVE) /HPF Urine Culture Reflexed YES (NO) Urine Glucose NEGATIVE (NEGATIVE) mg/dL Urine HCG, Qual NEGATIVE (Negative) - Progress Progress: improved Air Movement: good Progress Note: 09/05/20 she is given Toradol, on reevaluation feeling better. I do not think patient has UTI. Negative urine test. I believe her symptoms are secondary to a little heavier cycle causing metromenorrhagia. Recommended Tylenol ibuprofen and outpatient PHYSICAL EDUCATION SPECIALIST follow-up. She does not have any tenderness in the right lower quadrant. Nontoxic appearance. Do not think she needs any further work-up and is stable for discharge with outpatient follow-up. Discussed signs symptoms of worsening needing return to ER which she seems understanding. Blood Culture(s) Obtained: No Antibiotics given: No Counseled pt/family regarding: lab results, diagnosis, need for follow-up - Departure Departure Disposition: Home Clinical Impression: Moderate cramps with menses Condition: Stable Critical Care Time: No Referrals: DOCTOR,NO FAMILY [Primary Care Provider] - ANNE HINDS [ACTIVE STAFF] - Follow Up with PCP/3 days Instructions: Acute Abdomen (Belly Pain), Adult (DC), Menstrual Cramps (DC) Additional Instructions: Take Tylenol/ibuprofen alternate for relief of cramps. Keep yourself well- hydrated. Follow-up with primary care/PHYSICAL EDUCATION SPECIALIST for reevaluation. Return to ER for intractable pain or if develop vomiting fever chills etc. Prescriptions: Ibuprofen 600 mg PO Q6HPRN PRN 10 Days #20 tablet PRN Reason: Pain
[2020-09-05 10:10] VITALS: BP 118/90; PULSE 86
== END 2020-09-05 10:11 | disposition home or self-care (01) ==
LOC: ED 09:07
DX: N92.6 Irregular menstruation, unspecified (principal); N94.6 Dysmenorrhea, unspecified
CPT/HCPCS: 81001; 84703; 87086; 96372; 99284; J1885

== ENCOUNTER 2023-04-23 20:46 | Emergency (ER) | payer OTHER ==
[2023-04-23 21:05] VITALS: RESP 16; TEMP 97.5
--- NOTE | 2023-04-23 21:28 | ERPHSYRPT ---
- History of Present Illness Source: patient, other () Exam Limitations: no limitations Patient Subjective Stated Complaint: Pt reports after she had her baby approx 7 months ago her pelvis has been tilted. Since giving she has been having right lower back pain into right side of pelvis and down right thigh. Pain has worsened in the last week and even worse since yesterday. Pt has appointment to see SCRO[facility] OPERATOR Dr Chin in [place] on 04/25/23. Triage Nursing Assessment: Pt alert and oriented x3. No apparent respiratory distress. Ambulated to ED cot without difficulty. Skin w/p/d. No obvious deformities/contusions to back. Accompanied by significant other. Physician History: 22 yo WF cc of R CVA pain which radiates down the back of her R leg x 7 months which is worse x 1 week.It started after the of her child. Pain is 9/10, stabbing, and worse w upright position/walking. She denies trauma/dysuria/hematuria/incontinence/fever/focal weakness. States that she has an appointment w her Ob on 04/25 and that her PCP just gives her antinflammatories. Timing/Duration: other (1week/7 months) Method of Injury: unknown Quality: sharp Back Pain Location: paraspinous muscles Back Pain Radiation: buttocks, lower legs Severity of Pain-Max: severe Severity of Pain-Current: severe Modifying Factors: Improves With: movement Associated Symptoms: denies symptoms Previous symptoms: same symptoms as today Allergies/Adverse Reactions: Penicillins Allergy (Verified 04/23/23 20:53) Hx Tetanus, Diphtheria Vaccination/Date Given: Yes Hx Influenza Vaccination/Date Given: Yes Hx Pneumococcal Vaccination/Date Given: No Travel Risk - International Travel Have you traveled outside of the country in past 3 weeks: No - Coronavirus Screening Are you exhibiting any of the following symptoms?: No Close contact with a COVID-19 positive Pt in past 14-21 Days: No - Vaccine Status Have you recieved a Covid-19 vaccination: Yes Crab Backer: Moderna - Vaccination Dates Date of 2cond Vaccination (if applicable): ? - Review of Systems Constitutional: No Symptoms Eyes: No Symptoms Ears, Nose, & Throat: No Symptoms Respiratory: No Symptoms Cardiac: No Symptoms Abdominal/Gastrointestinal: No Symptoms Genitourinary Symptoms: No Symptoms Musculoskeletal: Back Pain Skin: No Symptoms Neurological: No Symptoms Psychological: No Symptoms Endocrine: No Symptoms Hematologic/Lymphatic: No Symptoms Immunological/Allergic: No Symptoms - Past Medical History Pertinent Past Medical History: Yes Neurological History: No Pertinent History ENT History: No Pertinent History Cardiac History: Hypertension Respiratory History: No Pertinent History Endocrine Medical History: No Pertinent History Musculoskeletal History: No Pertinent History GI Medical History: No Pertinent History History: No Pertinent History Psycho-Social History: Anxiety, Depression Female Reproductive Disorders: No Pertinent History Other Medical History: kidney cyst, cyst on ovary - Past Surgical History Past Surgical History: Yes Cardiac: No Pertinent History Respiratory: No Pertinent History Gastrointestinal: No Pertinent History Genitourinary: No Pertinent History Musculoskeletal: No Pertinent History Female Surgical History: No Pertinent History Other Surgical History: wisdom teeth, all teeth removed October 2022 - Social History Smoking Status: Former smoker How long have you smoked: years Exposure to second hand smoke: No Drug Use: marijuana Patient Lives Alone: No Significant Family History: no pertinent family hx - Female History Hx Last Menstrual Period: cycle finished 3 days ago. Hx Now: No - Nursing Vital Signs Nursing Vital Signs: Initial Vital Signs Temperature 97.5 F 04/23/23 20:51 Pulse Rate 98 H 04/23/23 20:51 Respiratory Rate 16 04/23/23 20:51 Blood Pressure 120/95 04/23/23 20:51 O2 Sat by Pulse Oximetry 98 04/23/23 20:51 Pain Scale Pain Intensity 9 Hypertensive - Physical Exam General Appearance: no apparent distress Eye Exam: PERRL/EOMI, eyes nml inspection Ears, Nose, Throat Exam: normal ENT inspection, TMs normal, pharynx normal, moist mucous membranes Neck Exam: normal inspection, non-tender, supple, full range of motion, No meningismus, No mass, No Brudzinski, No Kernig's, No carotid bruit Respiratory Exam: normal breath sounds, lungs clear, airway intact Cardiovascular Exam: regular rate/rhythm, normal heart sounds, normal peripheral pulses, capillary refill <2 sec, No murmur Gastrointestinal Exam: soft, normal bowel sounds, No tenderness Back Exam: CVA tenderness (Moderate R paraspinous TTP/Reflexes symmetric/mild pain w straight leg raises on R/strength symmetric) Extremity Exam: normal inspection, normal range of motion, pelvis stable Peripheral Pulses: carotid (R): 2+, carotid (L): 2+ Neurologic Exam: alert, oriented x 3, cooperative, 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 as tested, normal mood/affect, nml cerebellar function, nml station & gait, sensation nml, No motor deficits, No sensory deficit Skin Exam: normal color, warm, dry, No rash Lymphatic Exam: No adenopathy SpO2 Interpretation: normal SpO2: 98 O2 Delivery: Room Air - Course Nursing assessment & vital signs reviewed: Yes - CT Exams Abdomen/Pelvis CT Interpretation: Discussed w/radiologist (CT ab-pelvis neg) Ordered Tests: Active Orders 24 hr Category Date Time Status ABDOMEN AND PELVIS W/0 CONTRAS [CT] Stat Exams 04/23/23 21:22 Taken HCG QUALITATIVE, URINE Stat Lab 04/23/23 21:22 Completed UA W/RFX UR CULTURE Stat Lab 04/23/23 21:22 Completed Urine Triage Profile Stat Lab 04/23/23 21:31 Completed Medication Summary Discontinued Medications Generic Name Dose Route Start Last Admin Trade Name Freq PRN Reason Stop Dose Admin Ketorolac Tromethamine 30 mg 04/23/23 21:40 04/23/23 22:08 Ketorolac Tromethamine 30 Mg/Ml Inj IM 04/23/23 21:41 30 mg STAT ONE Administration Ketorolac Tromethamine Confirm 04/23/23 21:58 Ketorolac Tromethamine 30 Mg/Ml Inj Administered 04/23/23 21:59 Dose 30 mg .ROUTE .STK-MED ONE Orphenadrine Citrate 60 mg 04/23/23 21:40 04/23/23 22:08 Orphenadrine Citrate 60 Mg/2 Ml Vial IM 04/23/23 21:41 60 mg STAT ONE Administration Orphenadrine Citrate Confirm 04/23/23 21:58 Orphenadrine Citrate 60 Mg/2 Ml Vial Administered 04/23/23 21:59 Dose 60 mg .ROUTE .STK-MED ONE Lab/Rad Data: Laboratory Results 04/23/23 04/23/23 04/23/23 Range/Units 21:31 21:22 21:22 Urine Color Yellow (Yellow) Urine Appearance Clear (Clear) Urine pH 7.0 (4.6-8.0) Ur Specific [place] 1.025 (1.005-1.030) Urine Protein Negative (Negative) Urine Glucose (UA) Negative (Negative) mg/dL Urine Ketones Negative (Negative) Urine Blood Negative (Negative) Urine Nitrite Negative (Negative) Urine Bilirubin Negative (Negative) Urine Urobilinogen 0.2 (0.2) mg/dL Ur Leukocyte Esterase Negative (Negative) U Hyaline Cast (Auto) NONE SEEN (0-2) /LPF Urine Microscopic RBC 0-2 (0-5) /HPF Urine Microscopic WBC 3-5 (0-5) /HPF Ur Epithelial Cells Few (None Seen) /HPF Urine Bacteria None Seen (None Seen) /HPF Urine Culture Reflexed NO (NO) Urine HCG, Qual NEGATIVE (NEGATIVE) Urine Opiates Level NEGATIVE (NEGATIVE) Ur Methadone NEGATIVE (NEGATIVE) Urine Barbiturates NEGATIVE (NEGATIVE) Ur Phencyclidine (PCP) NEGATIVE (NEGATIVE) Urine Amphetamine NEGATIVE (NEGATIVE) U Benzodiazepine Level NEGATIVE (NEGATIVE) Urine Cocaine NEGATIVE (NEGATIVE) Urine Marijuana (THC) POSITIVE (NEGATIVE) - Progress Progress Note: 04/23/23 22:19 Nursing note and vital signs reviewed No food or housing insecurities noted All lab results reviewed and shared w pt/ CT result reviewed and shared w pt/ 30mg IM Toradol/60mg IM Norflex w mild improvement in pain Pt's states that pt has a MRI of her lumbar spine scheduled through her PCP Pt wo alarming features that include incontinence/paralysis/focal weakness/paresthesia 04/23/23 22:24 Counseled pt/family regarding: lab results, diagnosis, need for follow-up, rad results Medical Desision Making - Independent Historian Additional History obtained from: Spouse - Diagnostic Testing Diagnostic test were ordered, analyzed, and reviewed by me: Yes Radiological Interpretation: Reviewed by me - Risk of complications The pt has a mod risk of morbidity or mortality based on: Need for prescription drug management - Departure Departure Disposition: Home Clinical Impression: Sciatica Condition: Stable Critical Care Time: No Referrals: DOCTOR,NO FAMILY [Primary Care Provider] - Follow up/PCP as directed Instructions: Sciatica (DC) Additional Instructions: Rest/Heat/Massage Follow up with your family MD Rangel/Etodolac as needed for pain Return to ER as needed Prescriptions: Etodolac 400 mg [Lodine 400 mg] 400 mg PO BID PRN PRN #14 tablet PRN Reason: Pain Orphenadrine Citrate 100 mg [Norflex 100 MG Tablet] 100 mg PO BIDPRN PRN #14 tab PRN Reason: Pain
[2023-04-23 21:31] LABS: HCG URINE TEST NEGATIVE (NEGATIVE)
[2023-04-23 21:34] LABS: ADD URINE CULTURE? NO (NO); Appearance Clear (Clear); Bacteria None Seen /HPF (None Seen); Bilirubin Negative (Negative); Blood Negative (Negative); Epithelial Cells Few /HPF (None Seen); Glucose, Urine Negative (Negative); Hyaline Casts NONE SEEN /LPF (0-2); Ketones Negative (Negative); Leukocyte Esterase Negative (Negative); Nitrite Negative (Negative); Protein,Urine Dip Negative (Negative); RBC 0-2 /HPF (0-5); Specific Gravity 1.025 (1.005-1.030); Urobilinogen 0.2 mg/dL (0.2)
[2023-04-23] MEDS ORDERED: Norflex 60 MG/2 ML IM ONE (21:40)
[2023-04-23] MEDS ORDERED: TORAdol 30 mg Injection IM ONE (21:40)
[2023-04-23 21:55] LABS: Amphetamine,Urine NEGATIVE (NEGATIVE); Barbiturate,Urine NEGATIVE (NEGATIVE); Benzodiazepine,Urine NEGATIVE (NEGATIVE); Cocaine,Urine NEGATIVE (NEGATIVE); Methadone,Urine NEGATIVE (NEGATIVE); Opiate,Urine NEGATIVE (NEGATIVE); PCP,Urine NEGATIVE (NEGATIVE); THC,Urine POSITIVE (NEGATIVE)
[2023-04-23] MEDS ORDERED: TORAdol 30 mg Injection ONE (21:58)
[2023-04-23] MEDS ORDERED: Norflex 60 MG/2 ML ONE (21:58)
[2023-04-23 22:10] VITALS: PULSE 87
[2023-04-23 22:17] VITALS: O2SAT 98
[2023-04-23 22:29] VITALS: BP 111/84
--- NOTE | 2023-04-24 08:43 | XRAY ---
Indication: Right costovertebral angle pain. Multiple contiguous axial images obtained through the abdomen and pelvis without contrast. Comparison: January 19, 2019 Lung bases clear. Heart not enlarged. Noncontrasted stomach and bowel loops appear nonobstructed with normal appendix. No free fluid/air. Remaining liver, gallbladder, pancreas, spleen, adrenal glands, kidneys, ureters, bladder, uterus, and aorta are unremarkable for noncontrast exam. Osseous structures intact. No ventral or inguinal hernias. Impression: Negative CT abdomen/pelvis without contrast exam.
== END 2023-04-23 22:29 | disposition home or self-care (01) ==
LOC: ED 20:46
DX: M54.31 Sciatica, right side (principal); I10 Essential (primary) hypertension
CPT/HCPCS: 74176; 80307; 81001; 81025; 96372; 99284; J1885; J2360

== ENCOUNTER 2023-08-01 10:24 | Day surgery (SDC) | payer OTHER ==
[2023-08-01] MEDS ORDERED: Decadron 4 MG INJ IV ONE (10:25)
[2023-08-01] MEDS ORDERED: Sodium Chloride 0.9(Preservative Free) 10 ML IJ ONE (10:25)
[2023-08-01 12:10] LABS: HCG URINE TEST NEGATIVE (NEGATIVE)
[2023-08-01] MEDS ORDERED: Versed 2 MG/2 ML Injection ONE (12:39)
[2023-08-01] MEDS ORDERED: DIPRIVAN 200 MG/20 ML IV ONE (13:19)
[2023-08-01] MEDS ORDERED: Lactated Ringers 1,000 ML IV ONE (13:46)
--- NOTE | 2023-08-01 14:43 | XRAY ---
Indication: Right L4-S1 transforaminal ANABELL. Intraoperative fluoroscopy provided 31 seconds. 46 digital spot images submitted for interpretation demonstrates posterior needle tip projecting over the expected right L4 and L5 nerve roots. Small amount of contrast injected for needle tip placement. Correlate with intraoperative findings/report.
--- NOTE | 2023-08-01 15:10 | XRAY ---
31 seconds of fluoroscopy was used in surgery for a right L4-S1 transforaminal ANABELL.
== END 2023-08-01 13:47 | disposition home or self-care (01) ==
LOC: SDC-PAIN 10:24
PROVIDERS: ATTEND Psychiatry & Neurology Pain Medicine
DX: M54.16 Radiculopathy, lumbar region (principal)
CPT/HCPCS: 64483; 64484; 72100; 77003; 81025; J1100; J2250; J2704; Q9966

== ENCOUNTER 2023-12-26 14:57 | Day surgery (SDC) | payer OTHER ==
[2023-12-26] MEDS ORDERED: Sodium Chloride 0.9(Preservative Free) 10 ML IJ ONE (14:58)
[2023-12-26] MEDS ORDERED: Depo-Medrol 40 MG/ML IM ONE (14:58)
[2023-12-26 16:01] LABS: HCG URINE TEST NEGATIVE (NEGATIVE)
[2023-12-26] MEDS ORDERED: Versed 2 MG/2 ML Injection ONE (16:23)
[2023-12-26] MEDS ORDERED: DIPRIVAN 200 MG/20 ML IV ONE (17:21)
[2023-12-26] MEDS ORDERED: Lactated Ringers 1,000 ML IV ONE (17:28)
--- NOTE | 2023-12-26 20:09 | XRAY ---
Indication: Right L4-S1 transforaminal ANABELL. Intraoperative fluoroscopy provided for 28 seconds. 3 digital spot image submitted for interpretation demonstrates posterior needle tips projecting over the expected right L4 and L5 nerve roots. Small amount of contrast injected for needle tip placement. Correlate with intraoperative findings/report.
--- NOTE | 2023-12-27 09:10 | XRAY ---
28 seconds of fluoroscopy was used in surgery for a right L4-S1 transforaminal ANABELL.
== END 2023-12-26 17:45 | disposition home or self-care (01) ==
LOC: SDC-PAIN 14:57
PROVIDERS: ATTEND Psychiatry & Neurology Pain Medicine
DX: M54.16 Radiculopathy, lumbar region (principal)
CPT/HCPCS: 64483; 64484; 72100; 77003; 81025; J1010; J2250; J2704; Q9966

== ENCOUNTER 2025-03-19 11:59 | Emergency (ER) | payer OTHER ==
--- NOTE | 2025-03-19 12:27 | ERPHSYRPT ---
- History of Present Illness Time Seen by Provider: 03/19/25 12:10 Source: patient Physician History: Patient reports that that she has a history of low back pain. She states that over the last 24 hours she has had increasing lumbar pain. She denies any radicular pain. No numbness or weakness. No incontinence.Denies abdominal pain or urinary symptoms Allergies/Adverse Reactions: Penicillins Allergy (Verified 03/19/25 12:19) Home Medications: Diphenhydramine HCl 25 mg [Benadryl 25 mg Capsule] 25 mg PO HS 03/19/25 [History] Topiramate 50 mg PO DAILY 03/19/25 [History] Hx Tetanus, Diphtheria Vaccination/Date Given: Yes Hx Influenza Vaccination/Date Given: Yes Hx Pneumococcal Vaccination/Date Given: No - Review of Systems Constitutional: No Fever, No Chills Eyes: No Symptoms Ears, Nose, & Throat: No Symptoms Respiratory: No Cough, No Dyspnea Cardiac: No Chest Pain, No Edema, No Syncope Abdominal/Gastrointestinal: No Abdominal Pain, No Nausea, No Vomiting, No Diarrhea Genitourinary Symptoms: No Dysuria Musculoskeletal: Joint Pain, No Back Pain, No Neck Pain, No Injury, No Joint Redness Skin: No Rash Neurological: No Dizziness, No Focal Weakness, No Sensory Changes Psychological: No Symptoms Endocrine: No Symptoms All Other Systems: Reviewed and Negative - Past Medical History Pertinent Past Medical History: Yes Neurological History: No Pertinent History ENT History: No Pertinent History Cardiac History: Hypertension Respiratory History: No Pertinent History Endocrine Medical History: No Pertinent History Musculoskeletal History: No Pertinent History GI Medical History: No Pertinent History History: No Pertinent History Psycho-Social History: Anxiety, Depression Female Reproductive Disorders: No Pertinent History Other Medical History: kidney cyst, cyst on ovary - Past Surgical History Past Surgical History: Yes Cardiac: No Pertinent History Respiratory: No Pertinent History Gastrointestinal: No Pertinent History Genitourinary: No Pertinent History Musculoskeletal: No Pertinent History Female Surgical History: No Pertinent History Other Surgical History: wisdom teeth, all teeth removed October 2022 Significant Family History: no pertinent family hx - Female History Hx Last Menstrual Period: 3 WEEKS AGO - Social History Smoking Status: Former smoker How long have you smoked: years Exposure to second hand smoke: No Drug Use: marijuana Patient Lives Alone: No - Nursing Vital Signs Nursing Vital Signs: Initial Vital Signs Temperature 97 F 03/19/25 11:59 Pulse Rate 81 03/19/25 11:59 Respiratory Rate 16 03/19/25 11:59 Blood Pressure 110/74 03/19/25 11:59 O2 Sat by Pulse Oximetry 99 03/19/25 11:59 Pain Scale Pain Intensity 8 - Physical Exam General Appearance: alert, No no apparent distress Eye Exam: PERRL/EOMI, eyes nml inspection Neck Exam: normal inspection, non-tender, supple, full range of motion, No meningismus, No midline tenderness Respiratory Exam: normal breath sounds, lungs clear, No respiratory distress Cardiovascular Exam: regular rate/rhythm, normal heart sounds Gastrointestinal Exam: soft, No tenderness, No mass Back Exam: normal inspection, other (Patient with no swelling or discoloration. Negative SLR. No motor weakness or sensory loss. Has some generalized lumbar discomfort not localized to level) Extremity Exam: normal inspection, normal range of motion, No calf tenderness, No pedal edema Neurologic Exam: alert, oriented x 3, cooperative, supervisor glycerin II-XII nml as tested, normal mood/affect, nml station & gait, sensation nml, No motor deficits Skin Exam: normal color, warm, dry, No rash SpO2 Interpretation: normal Ordered Tests: Medication Summary Discontinued Medications Generic Name Dose Route Start Last Admin Trade Name Mellisa PRN Reason Stop Dose Admin Ketorolac Tromethamine 30 mg 03/19/25 12:30 03/19/25 12:35 Ketorolac Tromethamine 30 Mg/Ml Inj IM 03/19/25 12:31 30 mg STAT ONE Administration Ketorolac Tromethamine Confirm 03/19/25 12:34 Ketorolac Tromethamine 30 Mg/Ml Inj Administered 03/19/25 12:35 Dose 30 mg .ROUTE .STK-MED ONE Oxycodone/Acetaminophen 1 tab 03/19/25 12:31 03/19/25 12:35 Oxycodone / Apap 10/325 Mg 1 Tablet PO 03/19/25 12:32 1 tab STAT STA Administration Oxycodone/Acetaminophen Confirm 03/19/25 12:34 Oxycodone / Apap 10/325 Mg 1 Tablet Administered 03/19/25 12:35 Dose 1 tab .ROUTE .STK-MED ONE - Progress Progress Note: 03/19/25 12:40 The patient was given IM Toradol and a p.o. dose of oxycodone in the department. She has no symptoms of cauda equina. She had exacerbation of her chronic pain today after lifting a small basket. Physical exam showed low back pain but otherwise unremarkable. Try the patient on a course of muscle relaxants and anti-inflammatory. She has follow-up. We discussed return instructions. She voiced understand treatment plan - Departure Departure Disposition: Home Clinical Impression: Back pain Condition: Good Critical Care Time: No Instructions: Low back pain in adults Additional Instructions: You are being given a anti-inflammatory muscle relaxant to use for your back. Do not use this with other anti-inflammatories. If you are not improved in 24 to 48 hours please contact your primary doctor for recheck. Return for any worsening symptoms or concerns such as weakness numbness incontinence Prescriptions: Cyclobenzaprine HCl 10 mg [Cyclobenzaprine 10 MG] 10 mg PO TID #12 tablet Naproxen 500 mg [Naprosyn 500 MG] 500 mg PO BIDPRN PRN #14 tablet PRN Reason: Pain
[2025-03-19 12:33] VITALS: BP 110/74; PULSE 81; RESP 16; TEMP 97; O2SAT 99
[2025-03-19] MEDS ORDERED: OXYCODONE-ACETAMINOPHEN 10-325 ONE (12:34)
[2025-03-19] MEDS ORDERED: TORAdol 30 mg Injection ONE (12:34)
[2025-03-19] MEDS: OXYCODONE-ACETAMINOPHEN 10-325 PO STA (12:35)
[2025-03-19] MEDS: TORAdol 30 mg Injection IM ONE (12:35)
== END 2025-03-19 12:57 | disposition home or self-care (01) ==
LOC: ED 11:59
DX: M54.50 Low back pain, unspecified (principal); I10 Essential (primary) hypertension; Z79.899 Other long term (current) drug therapy